=== PATIENT | male | born 1985 | race African-American/Black ===

== ENCOUNTER 2017-05-22 07:14 | Emergency (ER) | payer OTHER ==
[~2017-05-22] VITALS: Ht 180.3 cm; Wt 83.9 kg
--- NOTE | ~2017-05-22 | EKG ---
[place] [id number] [address] ELECTROCARDIOGRAM REPORT Name: MERCY QUINTANILLA Room #: REG RANDA Koch#: [id number] Admission: 05/22/17 Attend Phys: Discharge: Date of : 83 Report #: [id number] THIS REPORT FOR: //name// [facility] ED Test Date: 2017-05-22 Test Time: 07:21:25 Pat Name: MERCY QUINTANILLA Department: Room: Gender: Dog And Cat Food Cook: : 1985 Requested By: Isrrael Kathleen Order Number: [id number] MD: Glen Powell Measurements Intervals [place] Rate: 102 P: 48 VT: 128 QRS: 82 QRSD: 82 T: -75 QT: 348 QTc: 454 Interpretive Statements Sinus tachycardia Borderline T abnormalities No previous ECG available for comparison Electronically Signed On 05-22-2017 8:00:07 CDT by Glen Powell [email or web address] <ELECTRONICALLY SIGNED> By: Glen Powell MD, [facility] 05/22/17 0800 0721 0721 Glen Powell MD, FACC /EPI
[2017-05-22] MEDS ORDERED: LIORESAL 10 MG10 MG PO (07:27)
[2017-05-22] MEDS ORDERED: NEURONTIN 300300 M1 PO (07:27)
[2017-05-22] MEDS ORDERED: OXYBUTYNIN 5 MG5 M2 PO (07:28)
[2017-05-22] MEDS ORDERED: IBUPROFEN 800800 M1 PO (07:28)
[2017-05-22] MEDS ORDERED: ZANAFLEX4 MG PO (07:28)
[2017-05-22 08:01] LABS: HEMATOCRIT 49.2 % (42.0-52.0); HEMOGLOBIN 16.4 gm/dL (14.0-18.0); MCH 29.9 pg (26.0-34.0); MCHC 33.3 g/dL (28.0-37.0); MCV 89.8 fL (80.0-100.0); RBC 5.48 mil/uL (4.50-6.00); WBC 16.4 thou/uL (4.0-11.0)
[2017-05-22 08:09] LABS: ANION GAP 12 mmol/L (7-16); BUN 21 mg/dL (7-18); CALCIUM 9.3 mg/dL (8.5-10.1); CHLORIDE 102 mmol/L (98-107); CO2 27 mmol/L (21-32); CREATININE 1.2 mg/dL (0.7-1.3); GLUCOSE 54 mg/dL (74-106); POTASSIUM 3.3 mmol/L (3.5-5.1); SODIUM 141 mmol/L (136-145)
[2017-05-22 08:18] LABS: TROPONIN-I < 0.04 ng/mL (<0.04-0.07)
[2017-05-22 10:09] VITALS: BP 127/85
== END 2017-05-22 10:43 | disposition home or self-care (01) ==
LOC: ER 07:14
PROVIDERS: Emergency Medicine
DX: R07.89 Other chest pain (principal); F17.210 Nicotine dependence, cigarettes, uncomplicated

== ENCOUNTER 2018-12-18 13:09 | Emergency (ER) | payer OTHER ==
[~2018-12-18] VITALS: Ht 180.3 cm; Wt 83.9 kg
[~2018-12-18 13:09] MED LIST: IBUPROFEN 800800 M1 PO; LIORESAL 10 MG10 MG PO; NEURONTIN 300300 M1 PO; OXYBUTYNIN 5 MG5 M2 PO; ZANAFLEX4 MG PO
[2018-12-18] MEDS ORDERED: NORCO 7.5-3251 EACH PO (13:32)
[2018-12-18 13:40] LABS: HEMATOCRIT 48.5 % (42.0-52.0); HEMOGLOBIN 16.4 gm/dL (14.0-18.0); MCH 29.1 pg (26.0-34.0); MCHC 33.8 g/dL (28.0-37.0); PLATELET COUNT 238 thou/uL (150-400); RBC 5.64 mil/uL (4.50-6.00); RDW 13.7 % (10.5-14.5); WBC 8.3 thou/uL (4.0-11.0)
[2018-12-18 13:48] LABS: CALCIUM 10.3 mg/dL (8.5-10.1); CREATININE 1.5 mg/dL (0.7-1.3); POTASSIUM 4.1 mmol/L (3.5-5.1)
[2018-12-18 14:22] LABS: ANISOCYTOSIS SLIGHT
[2018-12-18 14:44] LABS: URINE BILIRUBIN NEGATIVE (Negative); URINE BLOOD 1+ (Negative); URINE CLARITY CLEAR; URINE COLOR YELLOW; URINE GLUCOSE-RANDOM* NEGATIVE (Negative); URINE KETONES 2+ (Negative); URINE NITRITE-REFLEX NEGATIVE (Negative); URINE PROTEIN (DIPSTICK) TRACE (Negative); URINE UROBILINOGEN 0.2 E.U./dl (0.2-1.0)
[2018-12-18 14:47] LABS: URINE LEUKOCYTES-REFLEX 1+ (Negative)
[2018-12-18 14:52] LABS: AMP/METHAMP POSITIVE (Negative); BARBITURATES Negative (Negative); BENZODIAZEPINES Negative (Negative); COCAINE POSITIVE (Negative); METHADONE Negative (Negative); OPIATES Negative (Negative); PCP Negative (Negative)
[2018-12-18 14:59] LABS: BACTERIA-REFLEX 1-9 Few /HPF (None Seen); CASTS None Seen /LPF (None Seen); CRYSTALS None Seen /LPF (None Seen); SQUAMOUS 0-3 Few /LPF (0-3); URINE RBC 0-2 Rare /HPF (0-2); URINE WBC-REFLEX 6-15 Few /HPF (0-5)
[2018-12-18 15:00] VITALS: BP 120/74
[2018-12-18] MEDS ORDERED: CIPROFLOXACIN500 M1 PO (15:20)
== END 2018-12-18 15:00 | disposition home or self-care (01) ==
LOC: ER 13:09
PROVIDERS: Emergency Medicine
DX: N39.0 Urinary tract infection, site not specified (principal); F14.10 Cocaine abuse, uncomplicated; F15.10 Other stimulant abuse, uncomplicated; F17.210 Nicotine dependence, cigarettes, uncomplicated

== ENCOUNTER 2019-10-10 02:12 | Emergency (ER) | payer OTHER ==
[~2019-10-10] VITALS: Ht 180.3 cm; Wt 83.9 kg
[~2019-10-10 02:12] MED LIST changes: +CIPROFLOXACIN500 M1 PO; +NORCO 7.5-3251 EACH PO
[2019-10-10 04:25] LABS: URINE BILIRUBIN NEGATIVE (Negative); URINE BLOOD TRACE (Negative); URINE CLARITY CLEAR; URINE COLOR YELLOW; URINE GLUCOSE-RANDOM* NEGATIVE (Negative); URINE KETONES 1+ (Negative); URINE LEUKOCYTES-REFLEX NEGATIVE (Negative); URINE NITRITE-REFLEX NEGATIVE (Negative); URINE PROTEIN (DIPSTICK) NEGATIVE (Negative); URINE SPECIFIC GRAVITY 1.015 (1.005-1.035); URINE UROBILINOGEN 0.2 E.U./dl (0.2-1.0)
[2019-10-10 04:36] LABS: AMP/METHAMP POSITIVE (Negative); BARBITURATES Negative (Negative); BENZODIAZEPINES Negative (Negative); COCAINE Negative (Negative); METHADONE Negative (Negative); OPIATES POSITIVE (Negative); PCP Negative (Negative)
[2019-10-10] MEDS ORDERED: HYDROCORTISONE30 G9 RECTAL (04:44)
[2019-10-10 05:25] VITALS: BP 141/81
== END 2019-10-10 05:25 | disposition home or self-care (01) ==
LOC: ER 02:12
PROVIDERS: Emergency Medicine
DX: K64.4 Residual hemorrhoidal skin tags (principal); F11.90 Opioid use, unspecified, uncomplicated; F15.10 Other stimulant abuse, uncomplicated; G89.29 Other chronic pain; F17.210 Nicotine dependence, cigarettes, uncomplicated; Z89.611 Acquired absence of right leg above knee; Z79.2 Long term (current) use of antibiotics; Z79.899 Other long term (current) drug therapy

== ENCOUNTER 2020-01-27 22:08 | Inpatient (IN) | payer OTHER ==
[~2020-01-27] VITALS: Ht 172.7 cm; Wt 80.7 kg
[~2020-01-27 22:08] MED LIST changes: +HYDROCORTISONE30 G9 RECTAL
[2020-01-27 22:10] VITALS: BP 136/79
[2020-01-27 23:18] LABS: HEMATOCRIT 45.7 % (42.0-52.0); HEMOGLOBIN 16.3 gm/dL (14.0-18.0); MCH 29.8 pg (26.0-34.0); MCHC 35.6 g/dL (28.0-37.0); MCV 83.9 fL (80.0-100.0); PLATELET COUNT 250 thou/uL (150-400); RBC 5.45 mil/uL (4.50-6.00); RDW 13.2 % (10.5-14.5); URINE BILIRUBIN 1+ (Negative); URINE BLOOD NEGATIVE (Negative); URINE CLARITY CLEAR; URINE COLOR YELLOW; URINE GLUCOSE-RANDOM* NEGATIVE (Negative); URINE KETONES TRACE (Negative); URINE LEUKOCYTES-REFLEX NEGATIVE (Negative); URINE NITRITE-REFLEX NEGATIVE (Negative); URINE PROTEIN (DIPSTICK) 1+ (Negative); URINE SPECIFIC GRAVITY >= 1.030 (1.005-1.035); URINE UROBILINOGEN 0.2 E.U./dl (0.2-1.0); WBC 7.7 thou/uL (4.0-11.0)
[2020-01-27 23:19] LABS: ICTOTEST (BILI CONFIRMATORY) Negative (Negative)
[2020-01-27 23:25] LABS: CALCIUM 9.5 mg/dL (8.5-10.1); CREATININE 1.2 mg/dL (0.7-1.3); POTASSIUM 3.2 mmol/L (3.5-5.1)
[2020-01-27 23:31] LABS: ALBUMIN 3.8 g/dL (3.4-5.0); DIRECT BILIRUBIN 0.2 mg/dL (<0.1-0.2); TOTAL BILIRUBIN 1.2 mg/dL (0.2-1.0); TOTAL PROTEIN 7.7 g/dL (6.4-8.2)
[2020-01-27 23:58] LABS: ABSOLUTE NEUTROPHILS 5.3 thou/uL (1.4-8.2)
[2020-01-27 23:59] LABS: PLATELET ESTIMATE NORMAL
[2020-01-28] VITALS (8 sets, daily range): BP systolic 135–176; BP diastolic 77–100
[2020-01-28 00:02] LABS: BACTERIA-REFLEX 1-9 Few /HPF (None Seen); CASTS None Seen /LPF (None Seen); CRYSTALS None Seen /LPF (None Seen); MUCUS 4-6 Moderate strn/LPF (None Seen); SQUAMOUS 4-10 Moderate /LPF (0-3); URINE RBC 0-2 Rare /HPF (0-2); URINE WBC-REFLEX 0-5 Rare /HPF (0-5)
--- NOTE | 2020-01-28 03:44 | NUR ---
PATIENT ADMITTED TO THE UNIT AT 0130. PATIENT IS BELIGERENT, DEMANDING, AND VERBALLY ABUSIVE FROM THE MOMENT HE ARRIVES. LARGELY UNCOOPERATIVE WITH ADMISSION PROCESS, CONTINUOUSLY INTERUPTING TO DEMAND MEDS. PATIENT FINALLY REACHES THE UNDERSTANDING THAT GETTING THROUGH ADMISSION PROCESS WILL EXPEDITE THE AVAILABILITY OF THE MEDICATIONS, SYSTEM ASSESSMENTS ARE REQUIRED BEFORE OBTAINING MED ORDERS. PATIENT CONTINUES TO BE BELIGERENT AND VERBALLU ABUSIVE TO STAFF.
--- NOTE | 2020-01-28 14:45 | NUR ---
PT ASSESSED AT START OF SHIFT. LYING IN PED W/ SHEET OVER HIS FACE. PT NOT WANTING TO BE BOTHERED W/ ANYTHING. JUST WANTS TO SLEEP AND BE LEFT ALONE. DR. KEVIN IN AND STATES PT MIGHT NEED SURGERY AND WILL REASSESS TOMORROW AFTER HAVING NG IN PLACE AND PT NPO.
--- NOTE | 2020-01-29 02:56 | NUR ---
ASSESSED PT @ START OF SHIFT PT RESTING IN BED WANTED PAIN MED C/O GENERALIZIED PAIN / MANAGED BY IV DILAUDID. NG TUBE ON SUCTION BROWN COLOR OUT PUT NOTED. PT NPO. C/O BEING RESTLESS AND DIFFICULTY FALLING ASLEEP. CALLED HAND CIGAR MAKING SUPERVISOR AND ONE TIME ATIVAN GIVEN. IV INTACT AND FLUIDS INFUISING. PT WANTS TO BE LEFT ALONE, ROOM DARK WILL CONT WITH POC TILL EOS.
[2020-01-29 04:12] VITALS: BP 138/87
[2020-01-29 05:49] LABS: HEMOGLOBIN 16.2 gm/dL (14.0-18.0); MCH 29.4 pg (26.0-34.0); MCHC 33.8 g/dL (28.0-37.0); MCV 87.1 fL (80.0-100.0); RBC 5.51 mil/uL (4.50-6.00); RDW 13.4 % (10.5-14.5); WBC 4.3 thou/uL (4.0-11.0)
[2020-01-29 06:02] LABS: CALCIUM 8.8 mg/dL (8.5-10.1); CREATININE 1.1 mg/dL (0.7-1.3); MAGNESIUM 2.3 mg/dL (1.8-2.4); POTASSIUM 3.3 mmol/L (3.5-5.1)
[2020-01-29 08:40] VITALS: BP 159/85
--- NOTE | 2020-01-29 09:00 | NUR ---
chart review. cm tried calling pt x 2, no answer. cm report from bedside nurse. pt going to radiology for test/procedure. will cont following as needed for dc needs.
--- NOTE | 2020-01-29 14:55 | NUR ---
RECEIVED PT'S CARE AROUND 0730; PT. ON BED; RESTING WITH EYES CLOSED; UPSET DUE TO INTERRUPTED RESTING; ST. WANTS LIGHTS OFF; BLINDS OFF; ASKED WHEN HE MIGHT HAVE SOMETHING TO DRINK; REMAINED ABOUT NO ABLE TO EAT OR DRINK DUE NAUSEA & VOMITING; ABDOMINAL DISCOMFORT & OBSTRUCTION; UPSET; DURING AM ASSESSMENT PT. UPSET DUE TO LIGHTS ON & BLINDS ON; REQUESTED SOMETHING TO DRINK; REMAINED ABOUT NOT ABLE TO EAT OR DRINK; ST. "DO NOT MOVE ANYTHING"; EDUCATED ABOUT THE NEED OF SPACE IN ORDER TO LISTEN NG TUBE PLACEMENT & IRRIGATION; NO ANSWER BACK; CANNISTER CHANGED; DIAGNOSTIG ORDERS ON PLACED; TRANSPORTATION AT THE BED SIDE; PT. REFUSED; ST. "CAN YOU COME BACK IN 10 MIN"; "I NEED TO TALK WITH MY FIRST"; EDUCATED ABOUT THE NEED OF TEST; TRANSPORTATION BACK AFTER AROUND 20 MINS; GONE FOR AROUND ONE HOUR; PER WREATH MACHINE TENDER PT. NOT ABLE TO COMPLETE TEST DUE TO C/O NAUSEA & VOMITING AFTER CONTRAST; REQUESTED PRN PAIN MEDICATION; NOT DUE; PHYSICIAN NOTIFIED; ORDERS ON PLACED; MEDICATION ON PLACED; XRAY TECHNITIAN AT THE BED SIDE; PT. UPSET; VERBAL ABUSSIVE AGAINTS CONCESSIONS MANAGER; EDUCATED ABOUT RESPECT TOWARDS HEALTH CARE; EDUCATED ABOUT THE NEED OF TEST; REFUSED; ST. "COME BACK LATER"; PRN MEDICATION GIVEN; INSULTED CONCESSIONS MANAGER; AGREED TO HAVE TEST AFTER CONCESSIONS MANAGER, NURSE, LEAVE; NURSE LEFT; PER WREATH MACHINE TENDER NO CONTRAST IN PT'S ABDOMEN; PHYSICIAN NOTIFIED; NO NEW ORDERS; MONITORING; FAMILY MEMBER EDUCATED ABOUT NOT GIVEN ICE CHIPS AFTER REQUESTED; PRN PAIN MEDICATION & ANTI-NAUSEA GIVEN; RE-ASSESSMENT PT. RESTING WITH EYES CLOSED; NG TUBE RE-INFORCED; MONITORING; ASSESSMENT CHARGED; FOLLOWING POC; WILL PASS ON REPORT;
[2020-01-29 17:45] VITALS: BP 148/113
[2020-01-29 19:12] VITALS: BP 144/89
--- NOTE | 2020-01-29 20:13 | NUR ---
PATIENT TRANSFERRED FROM ROOM 200 ON 2- N REPORT FROM NURSE WHO STATED THAT ALL ASSESSMENTS AND TX'S DONE. V.S. PUT IN CHART BY NURSE. PT ALERT XS 4 CONT OF B&B.
[2020-01-30 03:36] VITALS: BP 139/86
--- NOTE | 2020-01-30 05:01 | NUR ---
Assumed pt care at 1900. Pt A/OX4 but not very conversant with staff;flat affect. C/o pain,nausea medicated per EMAR with some relief reported,no emesis this shift so far. Pt has been compliant this shift with being NPO and hasn't asked for ice chips or water,IVF infusing via REJ w/o problems. Pt has a NG connected to LIS with greenish liquid output. Pt declined being cleaned up after quality analyst/technical writer noted he had peed on a towel and threw it on the floor stating it hurts so much and he wants to wait for his in the morning;pt had just been medicated with pain meds at this time educated on r/o skin breakdown but he declined stating he's ok to be left alone. Environmental Programs Specialist spoke with pt's twice last evening and updated her on his progress. Resting quietly w/o any distress noted at this time,will continue to monitor pt.
[2020-01-30 07:00] VITALS: BP 118/80
[2020-01-30 10:23] LABS: CREATININE 1.1 mg/dL (0.7-1.3); MAGNESIUM 2.3 mg/dL (1.8-2.4); POTASSIUM 3.2 mmol/L (3.5-5.1)
--- NOTE | 2020-01-30 10:57 | NUR ---
cm tried visited with pt via phone call and no answer. cm received report from bedside nurse. cm visit with personal facial mask on with pt and sig other march at bedside. nurse was working with iv and even after cm intro to cm patricia cont to keep his eyes closed and final opened his eyes to visit. he report " need help when in pain. live ground level apartment. manage own medication. have [facility] and rehab in past."/patricia. denied and refused need for any support for ethol or drugs.
[2020-01-30 15:45] VITALS: BP 130/82
--- NOTE | 2020-01-30 18:43 | NUR ---
PT ASSESSED AT START OF SHIFT. PULLED OUT NG PER NOC RN REPORT. SURGEON LEFT OUT AND STARTED PT IN CLEAR LIQUIDS. HOME MEDS RESTARTED. HAS BOWEL SOUNDS PASSING FLATUS AND HAD SOLID BM. STILL HAVING SOME ABD PAINS BUT FEELS HE'S BETTER. IV POTASSIUM X2 BAGS.
[2020-01-30 18:52] VITALS: BP 148/90
--- NOTE | 2020-01-31 02:54 | NUR ---
RECIEVED CARE OF THIS PATIENT [id number]. PATIENT ALERT AND ORIENTED X4. C/O PAIN SEVERAL TIMES, MED GIVEN WHEN TIME. PT ON BEDREST AT NIGHT. STRAIGHT CATHS SELF. IV PATENT IN REJ WITH FLUIDS INFUSING. PATIENT IS A PARAPLEGIC WITH A RBKA. SLEPT VERY LITTLE THIS SHIFT.
[2020-01-31 03:22] VITALS: BP 130/88
[2020-01-31 08:26] LABS: CALCIUM 8.7 mg/dL (8.5-10.1); MAGNESIUM 1.9 mg/dL (1.8-2.4)
[2020-01-31 08:41] VITALS: BP 122/67
[2020-01-31 10:04] LABS: HEMATOCRIT 43.7 % (42.0-52.0); HEMOGLOBIN 14.7 gm/dL (14.0-18.0); MCH 29.4 pg (26.0-34.0); MCHC 33.8 g/dL (28.0-37.0); RBC 5.02 mil/uL (4.50-6.00); RDW 13.6 % (10.5-14.5); WBC 5.7 thou/uL (4.0-11.0)
--- NOTE | 2020-01-31 12:13 | NUR ---
discussed during los, pt possible surgery today. when medical stable for dc, no anticipated needs. home with sig other. will cont following as needed for dc needs
--- NOTE | 2020-01-31 18:56 | NUR ---
PT IS AOX4, VSS, PAIN IS CONTROLLED WITH PO PAIN ANALGESIC. PT REPORTS HE NEEDS A BM. PT REFUSED SUPPOSITORY THEN ASKED FOR IT. PT DID NOT HAVE BM YET. IV IN REJ IS PATENT WITH FLUIDS. PT CALLS APPROPRIATELY. WILL CONTINUE TO MONITOR.
--- NOTE | 2020-01-31 23:26 | NUR ---
ASSUMED PT CARE FROM SIVAKUMAR TEJEDA AT AROUND 2200HRS. PT JUST ASKED FOR SOME THINGS TO EAT AND A WARM BLANKET. NO SIGNS OF DISTRESS NOTED.HANDED OVER CARE OF PATIENT TO JANA TEJEDA @ AROUND 2300HRS.
[2020-02-01 07:08] LABS: CALCIUM 8.9 mg/dL (8.5-10.1); CREATININE 0.8 mg/dL (0.7-1.3); MAGNESIUM 1.6 mg/dL (1.8-2.4)
[2020-02-01 07:16] LABS: POTASSIUM 3.8 mmol/L (3.5-5.1)
--- NOTE | 2020-02-01 15:35 | NUR ---
ASSUMED CARE AT 0700, SHIFT ASSESSMENT DONE, MEDS GIVEN, VSS. C/O PAIN THROUGHOUT THE SHIFT, SEE eMAR FOR PAIN MANAGEMENT. NONCOMPLIANT, DR KEVIN WANTS PT TO TRY ENEMA AND SUPPOSITORY, HAS BEEN REFUSING ALL DAY. REPORTED HEART BURN, GIVEN WITH SOME RELIEF. ON CLEAR LIQUID DIET, NOT TOLERAING. ACCORDING TO PT, PASSING FLATUS. SPITTING UP FROM TIME TO TIME. WILL CONTINUE TO ENCOURAGE TO GET THE ENEMA. WILL CONTINUE TO ASSES AND ASSIST WITH ADLs NEEDED.
[2020-02-01 20:14] VITALS: BP 152/86
--- NOTE | 2020-02-01 22:46 | NUR ---
LATE ENTRY FROM [facility] OF 01/31/20. THIS NURSE ACQUIRED PATIENT AT 2300. ALERT AND ORIENTED X4. VERY RESTLESS. IV NOT PATENT DUE TO SHEATH BEING CRIMPED. SEVERAL ATTEMPTS, APPROX 5-6 AND OVER A PERIOD OF APPROX. THREE HOURS TO RESTART IV. PATIENT NOT COOPERATIVE. INCONTINENT OF BOWEL WHICH WAS LIGHT BROWN AND MUCOUS IN TEXTURE. SOME BROWN EMESIS AND C/O NAUSEA. PATIENT WAS GIVEN ZOFRAN AND DILAUDID IVP WITH SOME RELIEF. VERY TIME CONSUMING.
--- NOTE | 2020-02-02 03:01 | NUR ---
ASSESSED AT START OF SHIFT 1899. PT RESTING IN BED C/O PAIN, N/V. DARK BROWN BILE LIQUID EMESIS NOTED. PRN PAIN AND NAUSEA MEDS GIVEN. EDUCATED PT ON DRINKING LESS LIQUID AND TO STAY NPO WITH ICE CUBES TO HELP WITH RELIEF. PT SELF CATHERIZE HIMSELF. IV INTACT IN LFT FA AND FLUIDS INFUISING. FALL PREC IN PLACE AND CALL LIGHT IN REACH WILL CONT WITH POC TILL EOS.
[2020-02-02 08:51] LABS: CALCIUM 8.6 mg/dL (8.5-10.1); CREATININE 0.9 mg/dL (0.7-1.3); POTASSIUM 3.4 mmol/L (3.5-5.1)
--- NOTE | 2020-02-02 16:39 | NUR ---
PT CARE ASSUMED AT 0700. A&Ox4. PT IN BED COMPLAINING OF PAIN THAT IS NOT RESOLVING WITH PAIN MEDICATION. DR. TURNER AWARE. PT REQUESTING SOMETHING TO SLEEP, AWARE AND PT WAS GIVEN A ONE TIME DOSE OF LORAZEPAM. HEATING PAD ORDERED AND PUT IN PLACE. PT RESTING COMFORTABLY. PT IS VOMITTING STOOL. DR. CARLSON PAGED. DR. CARLSON HAS RETURNED THE CALL AND HAS PAGED DR. KEVIN. DR. BOLANOS CALLED BACK AND HAS ORDERED A NG TUBE TO BE PLACED. LIDOCAIN PATCH PLACED ON L.LOWER BACK. PT. DOES SELF CATH HIMSELF. STILL NEEDING STOOL SAMPLE. IV PATENT WITH NO REDNESS OR EDEMA. FALL PROTOCOL IN PLACE.
[2020-02-02 19:10] VITALS: BP 140/91
[2020-02-03 03:48] VITALS: BP 147/97
--- NOTE | 2020-02-03 04:18 | NUR ---
PT LYING IN BED. DILAUDID AND LORTAB PROVIDING PAIN RELIEF. DENIES NAUSEA. RESTING COMFORTABLY. CALL LIGHT WITHIN REACH. FREQUENT OBSERVATION.
[2020-02-03 07:41] LABS: CALCIUM 8.3 mg/dL (8.5-10.1); CREATININE 1.1 mg/dL (0.7-1.3); MAGNESIUM 2.1 mg/dL (1.8-2.4); POTASSIUM 3.4 mmol/L (3.5-5.1)
[2020-02-03 07:50] VITALS: BP 132/85
--- NOTE | 2020-02-03 14:12 | NUR ---
discussed during los, pt npo and going to require tpn for nutrition. pt has been noncompliant with npo and took out own ng in past. he was having bile emesis. no anticpated dc today and will cont following as needed for dc needs.
--- NOTE | 2020-02-03 14:58 | NUR ---
PT IS AOX4, VSS, RUDE TO STAFF. PT REPORTS HE WANTS TO TALK TO THE DOCTORS. PT REPORTS HE IS UNSURE WHAT IS GOING ON AND HE IS NOT BEING INFORMED. PT RECEIVED PAIN ANALGESIC PER IV ALONG WITH ZOFRAN FOR N/V. PT REPORTS HIS STOMACH IS FILLED WITH AIR. PT IS CURRENTLY NPO PER ORDER. DOUBLE LUMEN PICC LINE IS CURRENTLY BEING PLACED BY THE IV TEAM. NO BOWEL MOVEMENT YET. IV IN LEFT FA IS PATENT WITH FLUIDS RUNNING. PT USES CALL LIGHT APPROPRIATELY. WILL CONTINUE TO MONITOR.
--- NOTE | 2020-02-03 15:31 | NUR ---
RISK, BENEFITS, AND ALTERNATIVE TREATMENT DISCUSSED WITH THE PATIENT RELATED TO PICC PROCEDURE. TEACHING GIVEN RELATED TO POSSIBLE COMPLICATIONS SUCH BLEEDING, INFECTION, CLOT, OR VESSEL PERFORATION. INSTRUCTION GIVEN RELATED TO CLABSI PREVENTION WITH LITERATURE PROVIDED. PATIENT VOICES UNDERSTANDING TO THE ABOVE. VERBAL CONSENT OBTAINED AND THEN WRITTEN CONSENT OBTAINED.DOUBLE LUMEN PICC PLACED PER PROTOCOL TO RUE BASILIC VEIN. ONE STICK AND NO COMPLICATIONS. PATIENT TOLERATED VERY WELL. PICC LENGTH =44CM. PICC EXT. =3CM. V.O. =20%. CHEST XRAY OBTAINED. NIKHIL LOPEZ NOTIFIED OKAY TO USE. PICC TIP CONFIRMED DISTAL SVC.
[2020-02-03 17:31] VITALS: BP 134/94
[2020-02-03 21:00] VITALS: BP 136/83
--- NOTE | 2020-02-04 04:18 | NUR ---
RECIEVED CARE OF THIS PATIENT AT 1900. PATIENT ALERT AND ORIENTED X4, CAN BE AGGRIVATED AND DISRESPECTFUL. TENDS TO GET MAD EASY AND CUSS ALOT. HAS A HARD TIME GETTING COMFORTABLE. C/O PAIN SEVERAL TIMES AND C/O NAUSEA WITH VOMITING. PAIN MED AND NAUSEA MED GIVEN. ALL PO MEDS HELD D/T SURGERY THIS AM. HAS BM ALL OVER BED, FLOOR, EQUIPMENT IN ROOM. TRIED TO CLEAN UP BUT PATIENT SAID HE WANTED TO WAIT ON SOME OF IT UNTIL MORNING. HAS PICC WITH FLUIDS AND TPN INFUSING. PATIENT IS A PARAPLEGIC AND HAS A RBKA. SLEPT LITTLE THIS SHIFT.
[2020-02-04 07:30] VITALS: BP 157/101
[2020-02-04 08:01] LABS: ALBUMIN 2.7 g/dL (3.4-5.0); CALCIUM 8.5 mg/dL (8.5-10.1); CREATININE 0.8 mg/dL (0.7-1.3); MAGNESIUM 2.2 mg/dL (1.8-2.4); PHOSPHORUS 3.4 mg/dL (2.5-4.9); POTASSIUM 3.1 mmol/L (3.5-5.1); TOTAL BILIRUBIN 0.3 mg/dL (0.2-1.0); TOTAL PROTEIN 6.4 g/dL (6.4-8.2)
--- NOTE | 2020-02-04 11:15 | NUR ---
ASSUMED CARE AT 0700, SHIFT ASSESSMENT DONE, NPO SINCE LAST NIGHT. SCHEDULED FOR SURGERY TODAY @ 1600. RECEIVING TPN, PAIN CONTROL HAS BEEN AN ISSUE. DILAUDID DOSE INCREESED TO 1 MG, STILL REPORTING SIGNIFICANT PAIN. WILL CONTINUE TO ASSESS AND ASISST WITH ADLs NEEDED.
--- NOTE | 2020-02-04 12:51 | NUR ---
ON-GOING ASSESSMENT: CM REVIEWED CHART AND SPOKE WITH ATTENDING. PLANS ARE FOR PATIENT TO HAVE SURGERY FOR SBO TODAY. CM SPOKE WITH BEDSIDE RN WHO REPORTS PT IS AGREEABLE FOR SURGERY AND WILL HAVE IT THIS AFTERNOON. CM WILL MONITOR HOW PATIENT DOES POST SURGERY TO DETERMINE DISCHARGE NEEDS.
[2020-02-04 19:21] VITALS: BP 148/89
--- NOTE | 2020-02-05 03:49 | NUR ---
PT AOX4. PT REPORTS PAIN IN ABDOMEN. PAIN WORSENS WITH MOVEMENT, ACTIVITY, AND TACTILE STIMULATION. PT RECEIVING PRN IV DILAUDID Q2HR. PT NPO. PT ASSESSED WITH DRY MUCOUS MEMBRANES, ORAL SWABS PROVIDED. PT NOTED TO DRINK WATER USED FOR SWABS. PROVIDED REDIRECTION AND EDUCATION TO PT IN REGARDS TO PLAN OF CARE, CURRENT ORDERS, AND EFFECTS OF NONCOMPLIANCE. PT VERBALIZED UNDERSTANDING REPORTING HE TOOK SIPS AND THOUGHT IT WASNT A BIG DEAL. CONTINUED TO PROVIDE EDUCATION TO PT IN REGARDS TO PT SAFETY AND ACHIEVING OPTIMAL HEALTH OUTCOMES. ESTABLISHED UNDERSTANDING THAT WATER WILL BE MEASURED, ORAL SWABS WILL CONTINUE TO BE PROVIDED. PT CONTINUES WITH NG TUBE PLACED IN RIGHT NARE WITH LOW INTERMITTENT SUCTION, BROWN LIQUID WITH RED CONTENTS. PT RESTLESS THROUGHOUT THE NIGHT. PROVIDED ASSISTANCE WITH HYGIENE. FREQUENT REPOSITIONING ENCOURAGED, PT NOTED TO SHIFT INDEPENDENTLY WHILE IN BED. PT ENCOURAGED TO NOTIFY STAFF FOR ALL NEEDS. PT REFUSING TO LOWER BED DUE TO PREFERENCE, PROVIDED EDUCATION IN REGARDS TO PT SAFETY, PT CONTINUES TO REFUSE WITH NOTED AGITATION. CALL LIGHT WITHIN REACH, BED ALARM ON, WILL CONTINUE TO MONITOR.
[2020-02-05 08:21] LABS: HEMATOCRIT 42.4 % (42.0-52.0); HEMOGLOBIN 13.9 gm/dL (14.0-18.0); MCH 28.5 pg (26.0-34.0); MCHC 32.7 g/dL (28.0-37.0); MCV 86.9 fL (80.0-100.0); RBC 4.87 mil/uL (4.50-6.00); RDW 13.9 % (10.5-14.5); WBC 11.9 thou/uL (4.0-11.0)
[2020-02-05 08:40] LABS: CALCIUM 7.7 mg/dL (8.5-10.1); CREATININE 0.8 mg/dL (0.7-1.3); MAGNESIUM 1.8 mg/dL (1.8-2.4); PHOSPHORUS 3.4 mg/dL (2.5-4.9)
[2020-02-05 09:06] VITALS: BP 145/88
--- NOTE | 2020-02-05 16:00 | NUR ---
PT A&OX4. ANUSHA PICC INTACT INFUSING FLUIDS W/O COMPS. MIDLINE INCISION INTACT WITH SCANT AMT OF DRAINAGE FROM SURGERY YESTERDAY. NG TO LIS IN NARE DRAINING BILE SUSTANCE. IV PAIN MED HAS BEEN ADJUSTED, PT TOLERATING PAIN MORE EFFECTIVELY. SCD'S IN PLACE BILAT. CALL LIGHT W/I REACH, BED ALARM ON.
[2020-02-05 17:45] VITALS: BP 142/90
[2020-02-05 19:15] VITALS: BP 139/84
--- NOTE | 2020-02-06 01:04 | NUR ---
02/05/20 1900 ASSUMED CARE OF PT AFTER REPORT 2000 BASELONE ASSESSMENT COMPLETED DRESSING WITH TWO SMALL SPOTS OF OLD BLOOD, OTHERWISE SURGICAL INCISION SIT C/D/I, PT C/O PAIN AT INCISION SITE IS PASSING GAS AND DENIES N/V, NG TUBE IN PLACE AT LOW INTERMITTANT SX WILL CONTINUE TO MONITOR
[2020-02-06 03:56] VITALS: BP 153/101
[2020-02-06 06:30] LABS: HEMATOCRIT 35.3 % (42.0-52.0); MCH 29.3 pg (26.0-34.0); MCHC 34.1 g/dL (28.0-37.0); MCV 86.1 fL (80.0-100.0); RBC 4.1 mil/uL (4.50-6.00); RDW 13.8 % (10.5-14.5); WBC 8.9 thou/uL (4.0-11.0)
[2020-02-06 07:02] LABS: CALCIUM 8.1 mg/dL (8.5-10.1); CREATININE 0.7 mg/dL (0.7-1.3); PHOSPHORUS 3.9 mg/dL (2.5-4.9); POTASSIUM 3.3 mmol/L (3.5-5.1)
[2020-02-06 07:55] VITALS: BP 143/85
[2020-02-06 16:10] VITALS: BP 149/91
--- NOTE | 2020-02-06 17:50 | NUR ---
ASSUMED CARE OF THE PT AT 0700. PT HAS NG TUBING THAT WAS FLUSHED DUE TO BEING CLOGGED. NO BM'S TODAY. R UPPER ARM PICC DRY AND INTACT, ASPIRATED AND FLUSHED. PT REFUSED ABD BINDER. PT USES URINAL. PT RECEIVES BENADRYL WITH PAIN MEDS DUE TO ITCHING. PT REFUSED LIDOCAINEEDUCATED PT ON BEING NPO AND ONLY BEING ABLE TO HAVE SIPS OF WATER, PER DOCTOR. FALL PRECAUTIONS IN PLACE, BED IN THE LOWEST POSITION/LOCKED, CALL LIGHT IS WITHIN REACH. WILL CONTINUE TO MONITOR THE PT.
[2020-02-06 20:06] VITALS: BP 133/87
--- NOTE | 2020-02-07 01:51 | NUR ---
ASSUMED PT CARE AT 1900. PT A&OX4. PM MEDS GIVEN WITH SMALL SIPS (PROVIDER CLEARED IT) SUCTIONED STOPPED FOR 1HR. PT TOLERATED OK, C/O SHOOTING/CRAMPING PAIN IN ABDOMEN. PT CALLS AT EXACTLY 3HRS FOR PAIN MEDICATION. BENADRYL GIVEN FOR ITCHING. ACCUCHECKS Q6 HOURS - WNL. TPN INFUSING A 80ML/HR, PICC HAS A LOT OF PRESSURE WHICH IS DELAYING INFUSION. NEWTON PATENT WITH GOOD OUTPUT. NO BM THUS FAR, PT STATES HE IS PASSING FLATUS. CURRENTLY RESTING IN BED WITH TV ON. NO COMPLAINTS AT THIS TIME.
[2020-02-07 04:53] VITALS: BP 160/88
[2020-02-07 08:13] LABS: CALCIUM 8.7 mg/dL (8.5-10.1); CREATININE 0.7 mg/dL (0.7-1.3); MAGNESIUM 1.9 mg/dL (1.8-2.4); PHOSPHORUS 4.8 mg/dL (2.5-4.9); POTASSIUM 3.3 mmol/L (3.5-5.1)
[2020-02-07 08:27] VITALS: BP 133/83
--- NOTE | 2020-02-07 12:30 | NUR ---
PT ASSESSED AT START OF SHIFT. PT C/O ABD PAIN AND BEING HUNGRY. WANTING TO EAT SOMETHING. DR. CARLSON IN AT NOON AND HAD LONG DISCUSSION W/ PT EXPLAINING PT CONDITION W/ ILLEUS AND THE NEED TO HAVE THE NG IN PLACE AND BE NPO UNTIL BOWEL FUNCTION RETURNS AND ABD PAIN IS BETTER. PT STATED HE UNDERSTOOD. PT APOLOGIZED TO NURSE ABOUT BEING DIFFICULT SAYING HE WAS SORRY.
[2020-02-07 15:37] VITALS: BP 128/83
--- NOTE | 2020-02-07 18:00 | NUR ---
THIS AFTERNOON PT HAD VISITOR BRING HIM A BAG OF BELONGINGS. BELONGINGS PICKED UP BY STAFF TELE RN AND WAS OPENED AT BEDSIDE BY RN AND VP CARE MANAGEMENT TO CHECK FOR FOOD PT HAS BEEN FOUND TO BE SNEAKING FOOD. THERE WAS A TUPPERWARE BOWL W/ A HEATED MEAL CONSISTING OF PORK CHOP, [place] AND CHEEZE, AND COOKED VEGTABLES W/ A CANDY BAR FOR DESSERT. EXPLAINED TO PT HE WOULD NOT BE ALLOWED TO HAVE THE FOOD AND IT WOULD BE KEPT FOR HIM ONCE HE WAS ABLE TO EAT. 340.00 DOLLARS IN COATS COUNTED OUT AND WAS WAS GIVEN TO PT ALONG W/ HIS CLOTHING. NOTIFIED BASEBALL CLUB MANAGER.
[2020-02-07 19:13] VITALS: BP 135/91
--- NOTE | 2020-02-08 04:08 | NUR ---
RECIEVED CARE OF THIS PATIENT AT 1900. PATIENT ALERT AND ORIENTED X4. IS A PARAPLEGIC WITH A RBKA. HAS A FLOEY THAT IS PATENT NAS URINE. NG THAT IS PULLING OUT REDDISH FLUIDS. IV OF TPN INFUSING IN ANUSHA PICC. C/O PAIN, MED GIVEN WHEN TIME. HOME PO MEDS GIVEN WITH SMALL AMOUNT OF WATER. NG CLAMPED FOR AN HOUR AFTER MEDS WERE GIVEN. PATIENT AT TIMES HAS BEEN IRRITABLE. SLEPT SOME THIS SHIFT.
[2020-02-08 04:15] VITALS: BP 137/69
[2020-02-08 05:44] LABS: ALBUMIN 2.2 g/dL (3.4-5.0); CALCIUM 8.4 mg/dL (8.5-10.1); CREATININE 0.9 mg/dL (0.7-1.3); MAGNESIUM 1.9 mg/dL (1.8-2.4); PHOSPHORUS 4.1 mg/dL (2.5-4.9); TOTAL BILIRUBIN 0.9 mg/dL (0.2-1.0); TOTAL PROTEIN 6.7 g/dL (6.4-8.2)
[2020-02-08 07:05] VITALS: BP 133/86
--- NOTE | 2020-02-08 18:27 | NUR ---
PT A&OX4. PICC IN ANUSHA INTACT INFUSING TPN @80ML/HR. MID LINE ABD DRSG IS INTACT. PT TOLERATING PO/IV PAIN MED WELL. PT PASSING FLATUS, NO BM TODAY. NG CLAMPED THIS AM PT TOLERATING WELL AND DRINKING CLEARS LIGHTLY. CALL LIGHT W/I REACH, BED ALARM ON.
[2020-02-08 19:50] VITALS: BP 133/84
--- NOTE | 2020-02-09 03:06 | NUR ---
ASSESSED AT START OF SHIFT. PT RESTING IN BED PICC LINE INTACT AND TPN INFUISING @80/HR. PICC LINE IS VERY POSITIONAL AND BEEPS FREQLY. NO REDNESS, PAIN AND EDEMA. PAIN MEDS GIVEN ROUND THE CLOCK FOR MANAGEMENT SEE EMAR. NG TUBE CLAMPED AND NO EMESIS NOTED THIS SHIFT. PT GETS RESTLESS SLEEPING MEDS GIVEN. PT SLEPT SOME OF THE SHIFT. FALL PREC IN PLACE. FOLLEY INTACT DUE TO RETENTION AND PT A PARAPLEGIC WITH RBKA. GETS Q4 PO FLUIDS. WILL CONT WITH POC TILL EOS
[2020-02-09 03:25] VITALS: BP 136/87
[2020-02-09 07:20] VITALS: BP 128/77
[2020-02-09 11:56] LABS: HEMOGLOBIN 11.8 gm/dL (14.0-18.0); MCH 28.8 pg (26.0-34.0); MCHC 33.2 g/dL (28.0-37.0); MCV 86.7 fL (80.0-100.0)
[2020-02-09 11:58] LABS: HEMATOCRIT 35.6 % (42.0-52.0); RBC 4.1 mil/uL (4.50-6.00); RDW 13.5 % (10.5-14.5); WBC 8.8 thou/uL (4.0-11.0)
[2020-02-09 12:16] LABS: ALBUMIN 2.3 g/dL (3.4-5.0); CALCIUM 8.4 mg/dL (8.5-10.1); CREATININE 0.9 mg/dL (0.7-1.3); MAGNESIUM 1.9 mg/dL (1.8-2.4); PHOSPHORUS 4.2 mg/dL (2.5-4.9)
--- NOTE | 2020-02-09 16:07 | NUR ---
PT A&OX4. DOULBLE LUMEN PICC IN ANUSHA INFUSING TPN W/O COMPS. PT IS A PARA. ALTERNATING PO AND IV PAIN MEDS. ORDER RECEIVED TO DC NG TUBE AND PLACE ON FULL LIQUID DIET. PT ATE ONE PUDDING, SOUP AND APPLESAUCE. STATED HE FELT BLOATED AFTER. PT IS PASSING FLATULAS NO BM TODAY. CALL LIGHT W/I REACH, BED ALARM ON.
[2020-02-09 20:00] VITALS: BP 121/73
--- NOTE | 2020-02-10 03:42 | NUR ---
ASSESSMENT COMPLETED. PT IS ALERT AND ORIENTED. ASKING FOR PAIN MEDS ROUND THE CLOCK. RATES HIS PAIN AT A CONSTANT 9 OR 10. PT WANTING BOTH DIULADID AND NORCO AT THE SAME TIME. PT ALSO ASKING FOR CEREAL- DIET EDUCATION PROVIDED.PT ABDOMEN IS TIGHT, TENDER, DISTENDED. MIDLINE INCISION LOOKING GOOD.HE REPORTS PASSING FLATUS. PATIENT HESITANT ABOUT USING THE SUPPOSITORY STATING THAT IT DOES NOT WORK.CONTINUES ON TPN.
[2020-02-10 06:42] LABS: ALBUMIN 2.2 g/dL (3.4-5.0); CALCIUM 8.5 mg/dL (8.5-10.1); CREATININE 0.8 mg/dL (0.7-1.3); PHOSPHORUS 4.5 mg/dL (2.5-4.9); POTASSIUM 4.2 mmol/L (3.5-5.1); TOTAL BILIRUBIN 0.4 mg/dL (0.2-1.0); TOTAL PROTEIN 6.2 g/dL (6.4-8.2)
[2020-02-10 08:09] VITALS: BP 142/85
[2020-02-10 15:18] VITALS: BP 129/83
--- NOTE | 2020-02-10 16:40 | NUR ---
LONG PT TOLERATES DIET DC IS ANTICPATED TOMORROW. PT TO DC HOME WITH NO NEEDS.
--- NOTE | 2020-02-10 17:21 | NUR ---
pt given enema for constipation.
[2020-02-10 19:00] VITALS: BP 151/99
--- NOTE | 2020-02-10 21:52 | NUR ---
PATIENT HAS BEEN INAPPROPRIATE AT TIMES ON SHIFT. CALLED SAMPLER TESTER Marilee Fisher____. PATHOLOGY LABORATORY AIDES TEACHER SPOKE WITH PATIENT ABOUT HIS BEHAVIOR. HE TOLD THIS NURSE THAT HE DID NOT LIKE WHITE PEOPLE TAKING CARE OF HIM AND DIDNT CARE FOR MOST OF BLACK PEOPLE HERE. PT STATES HE DOES KNOW IF HE SHOULD GO HOME. PT WAS GIVEN ENEMA THIS NURSE IN ROOM PT PUT IN HIS SELF. TPN DCD. PICC INTACT. FLUSHES. PT WATCES CLOCK FOR MED TIMES GETS IRRITATED IF LATE 1-2 MIN AND MEDS ARE PRN.
--- NOTE | 2020-02-11 02:35 | NUR ---
PT GIVEN ANTIEMETIC X1 FOR NAUSEA. PT PAIN REMAINS IN THE 9-10 RANGE. PT C/O OF MORE BACK PAIN. MYLANTA GIVEN FOR HERATBURN. PT REFUSED HIS HS SUPPOSITORY. VSS.PT CONTINUES TO ASK FOR IV MEDICATION. I EDUCATED HIM ON USING HIS ORAL MEDICATIONS WITH PLANS TO D/C TOMORROW. PT REALLY IS ADAMANT ABOUT GETTING HIS IV PAIN MEDS-EVEN KNOWING HE WILL NOT HAVE IT AT HOME. ABDOMEN STILL TIGHT-HE IS PASSING GAS. HE REPORTS A BM AFTER USING ENEMA.CALL LIGHT WITHIN REACH. NO SIGNS OF DISTRESS.
[2020-02-11 03:15] VITALS: BP 139/65
[2020-02-11 07:30] VITALS: BP 125/84
--- NOTE | 2020-02-11 13:02 | NUR ---
Nutrition: Following for recent week long need for TPN due to SBO. TPN started 02/03 and was just discontinued yesterday. He is s/p exploratory lap w/ lysis of adhesions for SBO on 02/03. NG tube also recently dc'ed on 02/08. He received 3 full meals of full liquids beginning 02/08 and advanced to regular by lunch yesterday on 02/09. He ate extremely well for first meals back to solids. Ate 70-75% of both meals. Capable to call and change meals if needed. Abdomen still noted to tight/distended, but pt still passing flatus and EMR reports recent BM after enema. Pt anticipated to discharge home today if diet tolerance continues. Now that pt off TPN and eating adequately on regular diet, change to low nutrition risk.
[2020-02-11 15:00] VITALS: BP 144/91
--- NOTE | 2020-02-11 16:58 | NUR ---
DR. KAUFMAN INDICATED PT NOT MEDICALLY STABLE FOR DC THIS DAY. HE DOWNGRADED PT'S DIET. CM FOLLOWING.
--- NOTE | 2020-02-11 18:12 | NUR ---
PT A&OX4. PICC LINE INTACT IN ANUSHA. PT IS A PARAPLEGIC. ABD DRSG CHANGED BY DRAINEsdras SEROUS/SANG DRAINAGE AT BOTTOM OF INCISION. KUB WAS COMPLETE TODAY. PT HAS NOT HAD BM TODAY. STATES PAIN AT 10/10 IN HIS BACK. DIET CHANGED TO FULL LIQUID. CALL LIGHT W/I REACH, BED ALARM ON.
[2020-02-11 21:10] VITALS: BP 130/83
--- NOTE | 2020-02-12 03:20 | NUR ---
ASSESSED AT START OF SHIFT. PT C/O BACK AND ABD PAIN MANAGED BY PO AND IV PAIN MEDICINE. ZOFRAN GIVENX1 FOR NAUSEA. NO EMESIS NOTED THIS SHIFT. STILL NO BM. REFUSED NIGHT TIME SUPPOSITORY BUT DRANK HIS MAG CITRATE PT STATED PASSING GAS. CALL LIGHT IN REACH AND WILL CONT WITH POC TILL EOS.
[2020-02-12 08:47] VITALS: BP 132/85
[2020-02-12 18:14] VITALS: BP 140/90
--- NOTE | 2020-02-12 18:49 | NUR ---
PT IS AOX4, VSS, PAIN CONTROLLED WITH ORAL AND IV MEDS. PT WILL BE NPO AT MIDNIGHT FOR PROCEDURE TOMORROW. PT REPORTS HE IS READY TO GO HOME. PT HAD LARGE BM, FULL LIQUID DIET. CALL LIGHT IN REACH. WILL CONTINUE TO MONITOR.
[2020-02-12 22:10] VITALS: BP 131/81
--- NOTE | 2020-02-13 03:19 | NUR ---
RECEIVED CARE OF THIS PATIENT AT 1900. C/O PAIN Q2-3 HOURS, MED GIVEN WHEN TIME. C/O NAUSEA, MED GIVEN. DOUBLE LUMEN PICC LINE IN UPPER R ARM. PATENT BUT ARM MUST BE FLEXED TO WORK. NEWTON PATENT YELLOW URINE. NPO SINCE MN FOR A PROCEDURE. ALERT AND ORIENTED X4. SLEPT OFF AND ON DURING NIGHT.
[2020-02-13 06:05] VITALS: BP 120/75
[2020-02-13 07:35] VITALS: BP 121/83
--- NOTE | 2020-02-13 17:57 | NUR ---
PT IS AOX4, VSS, PAIN CONTROLLED WITH IV & PO MEDS. PT REPORTS STOMACH IS UPSET AND HE IS FEELING BLOATING. PT DOESN'T WANT TO DISCHARGE TODAY. PT HAS CALL LIGHT IN REACH. NO BM THIS SHIFT. WILL CONTINUE TO MONITOR.
[2020-02-13 20:20] VITALS: BP 135/93
[2020-02-13 20:30] VITALS: BP 135/93
--- NOTE | 2020-02-14 01:33 | NUR ---
PT AOX4. PT REPORTS PAIN IN ABDOMEN AND BACK. PT RECEIVING PRN IV DILAUDID Q3HR AND PRN PO NORCO Q4HR. PT REPORTS 'IM HIGH' IN RESPONSE TO PAIN REASSESSMENT, CONTINUES TO REQUEST PAIN MEDICATION. PROVIDED EDUCATION TO PT IN REGARDS TO MEDICATION INDICATIONS OF USE, MEDICATION EFFECTIVENESS, AND SAFE MEDICATION ADMINISTRATION. PT VERBALIZED UNDERSTANDING. PT ABDOMINAL DRESSING NOTED TO HAVE SMALL BROWNISH DRAINAGE. ABDOMINAL SURGICAL WOUND CLEANSED WITH NS, PATTED DRY, ABD APPLIED, SECURED WITH TAPE. PAIN NOTED TO WORSEN WITH TACTILE STIMULATION, ACTIVITY, AND PO INTAKE. PT ABDOMEN NOTED TO BE DISTENDED AND FIRM. FREQUENT REPOSITIONING ENCOURAGED. PT NOTED TO INDEPENDENTLY SHIFT WHILE IN BED, REFUSING TO REPOSITION FREQUENTLY DUE TO REPORTS OF PAIN. ABDOMINAL BINDER NOT IN PLACE, PT REFUSING. 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 PT TOLERATING PO INTAKE WITHOUT OCCURRENCE OF NAUSEA OR EMESIS. ENCOURAGED PT TO NOTIFY STAFF FOR ALL NEEDS. CALL LIGHT WITHIN REACH, BED ALARM ON, BED IN LOWEST POSITION. WILL CONTINUE TO MONITOR.
[2020-02-14 08:30] VITALS: BP 131/94
[2020-02-14 10:28] LABS: HEMATOCRIT 37.1 % (42.0-52.0); HEMOGLOBIN 12.4 gm/dL (14.0-18.0); MCH 28.8 pg (26.0-34.0); MCHC 33.5 g/dL (28.0-37.0); RBC 4.31 mil/uL (4.50-6.00); RDW 13.7 % (10.5-14.5); WBC 9.1 thou/uL (4.0-11.0)
[2020-02-14 10:41] LABS: ALBUMIN 2.5 g/dL (3.4-5.0); CALCIUM 8.4 mg/dL (8.5-10.1); CREATININE 0.9 mg/dL (0.7-1.3); MAGNESIUM 1.7 mg/dL (1.8-2.4); PHOSPHORUS 4.3 mg/dL (2.5-4.9); POTASSIUM 3.9 mmol/L (3.5-5.1)
[2020-02-14] MEDS ORDERED: PERCOCET 10-321 EAC1 PO (13:55)
[2020-02-14] MEDS ORDERED: LIDOPATCH1 EACH TRANSDERM (13:56)
[2020-02-14] MEDS ORDERED: SENNA-TIME S T1 EACH PO (13:57)
--- NOTE | 2020-02-14 14:15 | NUR ---
Pt dcing home this evening. HH RN ordered. Discussed with the pt and he declined hh referral and does not feel he needs a nurse coming out to his home. His ride will be here after dinner around 7pm. Pt has all needed dme in place. No cm interventions indicated.
[2020-02-14 16:31] VITALS: BP 136/85
[2020-02-14 18:22] VITALS: BP 136/85
[2020-02-14 19:06] VITALS: BP 136/85
== END 2020-02-14 21:35 | disposition home or self-care (01) | DRG 336 ==
LOC: ER 22:08 → 4S 01-28 01:08 → EROBS 01-28 01:08 → 4S 01-28 01:35
PROVIDERS: Emergency Medicine; Internal Medicine; Nurse Practitioner Family; Surgery; ADMIT Hospitalist; ATTEND Hospitalist
PROC: 0D9670Z Drainage of Stomach with Drainage Device, Via Natural or Artificial Opening (ICD-10-PCS; principal; 2020-01-29)
PROC: 02H633Z Insertion of Infusion Device into Right Atrium, Percutaneous Approach (ICD-10-PCS; 2020-02-03)
PROC: 0DNW0ZZ Release Peritoneum, Open Approach (ICD-10-PCS; 2020-02-04)
PROC: 0DJW0ZZ Inspection of Peritoneum, Open Approach (ICD-10-PCS; 2020-02-04)
DX: K56.609 Unspecified intestinal obstruction, unspecified as to partial versus complete obstruction (principal); G82.20 Paraplegia, unspecified; K92.0 Hematemesis; E44.0 Moderate protein-calorie malnutrition; G89.29 Other chronic pain; E87.6 Hypokalemia; R33.9 Retention of urine, unspecified; K21.9 Gastro-esophageal reflux disease without esophagitis; G47.00 Insomnia, unspecified; M54.9 Dorsalgia, unspecified; K59.09 Other constipation; Z20.828 Contact with and (suspected) exposure to other viral communicable diseases; Z89.611 Acquired absence of right leg above knee; Z71.6 Tobacco abuse counseling; Z91.19 Patient's noncompliance with other medical treatment and regimen; Z68.27 Body mass index [BMI] 27.0-27.9, adult; Z79.899 Other long term (current) drug therapy
CPT/HCPCS: 10195; 27000; 50010; 50101; 50386; 50455; 51114; 51412; 56525; 56528; 57092; 57108; 62110; 62900; 70005